=== PATIENT | female | born 1970 | race Caucasian/White ===

== ENCOUNTER → 2017-02-08 | Outpatient (CLI) | payer OTHER | LOC: CIMAGING 16:30 → EDSTATUS 20:42 | PROVIDERS: ATTEND Internal Medicine | DX: J06.9 Acute upper respiratory infection, unspecified (principal) | CPT/HCPCS: 71020-PO ==

== ENCOUNTER 2017-11-05 11:03 | Emergency (ER) | payer OTHER ==
--- NOTE | 2017-11-05 11:12 | CPEKG ---
Heart Rate: 49 RR Interval: 1224 P-R Interval: 156 QRSD Interval: 84 QT Interval: 436 QTC Interval: 394 P [place]: 71 QRS [place]: 77 T Wave [place]: 57 EKG Severity - OTHERWISE NORMAL ECG - EKG Impression: SINUS BRADYCARDIA Electronically Signed By: Tee Gonzalez 07-Nov-2017 06:11:35
[2017-11-05 11:13] VITALS: TEMP 98.1
[2017-11-05] MEDS ORDERED: ASPIRIN 81 MG CHEWABLE TAB PO ONE (11:13)
--- NOTE | 2017-11-05 11:19 | EDPHY ---
H & P Stated Complaint: cp since 130 am . cough x week or so Time Seen by Provider: 11/05/17 11:12 HPI/ROS: CHIEF COMPLAINT: Chest pain HISTORY OF PRESENT ILLNESS: The patient is a 47-year-old healthy female who comes to the emergency department complaining of chest tightness it on the left side that is exacerbated by inspiration and radiates to her left arm. It does not radiate to her back or neck. No diaphoresis. No fever. She states that she did have a flu like illness about 2 weeks ago that has since resolved. She denies shortness of breath. Her symptoms 1st began about 1:30 this morning and woke up from sleep but resolved and returned began around 10:30 this morning. No leg pain or swelling. No travel. Nonsmoker. No hormones. REVIEW OF SYSTEMS: Constitutional: denies: chills, fever, recent illness, recent injury EENTM: denies: blurred vision, double vision, nose congestion Respiratory: denies: cough, shortness of breath Cardiac: denies: chest pain, irregular heart rate, lightheadedness, palpitations Gastrointestinal/Abdominal: denies: abdominal pain, diarrhea, nausea, vomiting, blood streaked stools Genitourinary: denies: dysuria, frequency, hematuria, pain Musculoskeletal: denies: joint pain, muscle pain Skin: denies: lesions, rash, jaundice, bruising Neurological: denies: headache, numbness, paresthesia, tingling, dizziness, weakness Hematologic/Lymphatic: denies: blood clots, easy bleeding, easy bruising Immunologic/allergic: denies: HIV/AIDS, transplant EXAM: GENERAL: Well-appearing, well-nourished and in no acute distress. HEAD: Atraumatic, normocephalic. EYES: Pupils equal round and reactive to light, extraocular movements intact, sclera anicteric, conjunctiva are normal. ENT: TMs normal, nares patent, oropharynx clear without exudates. Moist mucous membranes. NECK: Normal range of motion, supple without lymphadenopathy or JVD. LUNGS: Breath sounds clear to auscultation bilaterally and equal. No wheezes rales or rhonchi. HEART: Regular rate and rhythm without murmurs, rubs or gallops. ABDOMEN: Soft, nontender, normoactive bowel sounds. No guarding, no rebound. No masses appreciated. BACK: No CVA tenderness, no spinal tenderness, step-offs or deformities EXTREMITIES: Normal range of motion, no pitting or edema. No clubbing or cyanosis. NEUROLOGICAL: Cranial nerves II through XII grossly intact. Normal speech, normal gait. 5/5 strength, normal movement in all extremities, normal sensation PSYCH: Normal mood, normal affect. SKIN: Warm, dry, normal turgor, no visible rashes or lesions. Source: Patient Exam Limitations: No limitations - Personal History LMP (Females 10-55): Post Menopausal - Medical/Surgical History Hx Asthma: No Hx Chronic Respiratory Disease: No Hx Diabetes: No Hx Cardiac Disease: Yes Hx Renal Disease: No Other PMH: Hypothyroid. hashimotos - Family History Significant Family History: No pertinent family hx - Social History Smoking Status: Never smoked Alcohol Use: Sober Drug Use: None Constitutional: Initial Vital Signs Temperature (C) 36.7 C 11/05/17 11:07 Heart Rate 56 L 11/05/17 11:07 Respiratory Rate 16 11/05/17 11:07 Blood Pressure 132/78 H 11/05/17 11:07 O2 Sat (%) 97 11/05/17 11:07 O2 Delivery Mode Nasal Cannula O2 (L/minute) 2 Allergies/Adverse Reactions: cephalexin monohydrate [From Keflex] Allergy (Verified 11/05/17 11:13) Sulfa (Sulfonamide Antibiotics) Allergy (Verified 11/05/17 11:13) Home Medications: Medication Instructions Recorded SYNTHROID 200 mcg 08/23/10 Medical Decision Making - Diagnostics EKG Interpretation: An EKG obtained and was read and documented in trace view. Please see trace view for full reading and report. Sinus bradycardia, no acute ischemic changes Imaging Results: Imaging Impressions Chest X-Ray 11/05/17 11:14 Impression: 1. Hyperexpansion with mild residual prominence, which could be related to airways disease/bronchitis. 2. Abnormal contour and cortical thickening in the proximal right humerus which could be related to subacute/old trauma but is nonspecific. Clinical correlation is recommended. Imaging: Discussed imaging studies w/ admissions coordinator Radiologist ED Course/Re-evaluation: 12:15 p.m. the patient is feeling much better. We discussed her imaging and lab work which is reassuring as is her EKG. I suspect that she has more bronchitis versus pleurisy. She still has a mild dry cough from her flu type infection 2 weeks ago. I did offer a repeat troponin in 3 hr which she would like to do. We will draw the troponin at 2:25 p.m.. 3:10 p.m. the patient's repeat troponin is negative. She is currently asymptomatic. We will discharge her at this time to follow up for stress testing with her primary. She understands and agrees with this plan. She declines further workup or testing. She will contact her primary Dr. Janie Fregoso for follow-up stress testing. Differential Diagnosis: Partial list of the Differential diagnosis considered include but were not limited to; bronchitis, pleurisy, acute coronary disease, and although unlikely based on the history and physical exam, I also considered pneumothorax , pneumonia, dissection, aneurysm. - Data Points Laboratory Results: Laboratory Results 11/05/17 11:25 11/05/17 11:25 11/05/17 11/05/17 11/05/17 14:30 11:25 11:25 WBC RBC Hgb Hct MCV MCH MCHC RDW Plt Count MPV Neut % (Auto) Lymph % (Auto) [place] % (Auto) Eos % (Auto) Baso % (Auto) Nucleat RBC Rel Count Absolute Neuts (auto) Absolute Lymphs (auto) Absolute Monos (auto) Absolute Eos (auto) Absolute Basos (auto) Absolute Nucleated RBC Immature Gran % Immature Gran # D-Dimer < 0.27 ug/mLFEU ug/mLFEU (0.00-0.50) Sodium 139 mEq/L mEq/L (135-145) Potassium 4.3 mEq/L mEq/L (3.5-5.2) Chloride 103 mEq/L mEq/L (97-110) Carbon Dioxide 23 mEq/l mEq/l (22-31) Anion Gap 13 mEq/L mEq/L (8-16) BUN 16 mg/dL mg/dL (7-23) Creatinine 0.8 mg/dL mg/dL (0.6-1.0) Estimated GFR > 60 Glucose 92 mg/dL mg/dL (70-100) Calcium 9.3 mg/dL mg/dL (8.5-10.4) Troponin I < 0.012 ng/mL ng/mL < 0.012 ng/mL ng/mL (0.000-0.034) (0.000-0.034) 11/05/17 11:25 WBC 4.51 10^3/uL 10^3/uL (3.80-9.50) RBC 4.34 10^6/uL 10^6/uL (4.18-5.33) Hgb 13.8 g/dL g/dL (12.6-16.3) Hct 39.8 % % (38.0-47.0) MCV 91.7 fL fL (81.5-99.8) MCH 31.8 pg pg (27.9-34.1) MCHC 34.7 g/dL g/dL (32.4-36.7) RDW 11.9 % % (11.5-15.2) Plt Count 274 10^3/uL 10^3/uL (150-400) MPV 8.4 fL L fL (8.7-11.7) Neut % (Auto) 53.0 % % (39.3-74.2) Lymph % (Auto) 35.0 % % (15.0-45.0) [place] % (Auto) 8.9 % % (4.5-13.0) Eos % (Auto) 2.2 % % (0.6-7.6) Baso % (Auto) 0.7 % % (0.3-1.7) Nucleat RBC Rel Count 0.0 % % (0.0-0.2) Absolute Neuts (auto) 2.39 10^3/uL 10^3/uL (1.70-6.50) Absolute Lymphs (auto) 1.58 10^3/uL 10^3/uL (1.00-3.00) Absolute Monos (auto) 0.40 10^3/uL 10^3/uL (0.30-0.80) Absolute Eos (auto) 0.10 10^3/uL 10^3/uL (0.03-0.40) Absolute Basos (auto) 0.03 10^3/uL 10^3/uL (0.02-0.10) Absolute Nucleated RBC 0.00 10^3/uL 10^3/uL (0-0.01) Immature Gran % 0.2 % % (0.0-1.1) Immature Gran # 0.01 10^3/uL 10^3/uL (0.00-0.10) D-Dimer Sodium Potassium Chloride Carbon Dioxide Anion Gap BUN Creatinine Estimated GFR Glucose Calcium Troponin I Medications Given: Discontinued Medications Aspirin (Aspirin) 324 mg PO EDNOW ONE Stop: 11/05/17 11:14 Last Admin: 11/05/17 11:16 Dose: 324 mg Ketorolac Tromethamine (Toradol) 15 mg IVP EDNOW ONE Stop: 11/05/17 11:49 Last Admin: 11/05/17 11:51 Dose: 15 mg Departure - Departure Disposition: Home, Routine, Self-Care Clinical Impression: Pleurisy Chest pain Qualifiers: Chest pain type: unspecified Qualified Code(s): R07.9 - Chest pain, unspecified Condition: Fair Instructions: Chest Pain (ED), Pleurisy (ED) Additional Instructions: Follow-up with your doctor for stress testing within 72 hr as we discussed. Referrals: Ruiz Steve DO [Primary Care Provider] - As per Instructions Erlinda Christian MD [Medical Doctor] - 1-2 days without fail (Stress testing)
[2017-11-05 11:33] LABS: PLATELET COUNT 274 10^3/uL (150-400)
[2017-11-05] MEDS ORDERED: KETOROLAC 15 MG/1 ML SDV IVP ONE (11:48)
[2017-11-05 14:45] VITALS: RESP 14; O2SAT 97
[2017-11-05 15:38] VITALS: BP 101/66; PULSE 50
== END 2017-11-05 15:42 | disposition home or self-care (01) ==
LOC: CED 11:03
DX: R07.9 Chest pain, unspecified (principal); R09.1 Pleurisy
CPT/HCPCS: 71046-PO; 80048-PO; 84484-PO; 85025-PO; 85378-PO; 96374; J1885

== ENCOUNTER → 2018-12-04 | Outpatient (CLI) | payer MEDICAID | LOC: CIMAGING 12:33 | PROVIDERS: ATTEND Registered Nurse | DX: E04.1 Nontoxic single thyroid nodule (principal) | CPT/HCPCS: 76536-PO ==

== ENCOUNTER → 2018-12-05 | Outpatient (CLI) | payer MEDICAID | LOC: BMCIMAGING 10:03 | PROVIDERS: ATTEND Registered Nurse | DX: N64.4 Mastodynia (principal) ==